=== PATIENT | female | born 1975 | race African-American/Black ===

== ENCOUNTER 2017-08-22 22:03 | Emergency (ER) | payer OTHER ==
[~2017-08-22] VITALS: Ht 177.8 cm; Wt 130.0 kg
[~2017-08-22 22:03] MED LIST: AMLO2.5T2 PO; BENA20TA3 PO; CHOL100046 PO; METF500T4 PO
[2017-08-22] MEDS ORDERED: KETOROLAC 60MG/2ML VIAL IM ONE (23:45)
[2017-08-22 23:55] VITALS: BP 147/85
== END 2017-08-22 23:55 | disposition home or self-care (01) ==
LOC: ER 22:03
DX: J02.9 Acute pharyngitis, unspecified (principal); R50.9 Fever, unspecified; I10 Essential (primary) hypertension; K21.9 Gastro-esophageal reflux disease without esophagitis
CPT/HCPCS: 96372; 99283; J1885

== ENCOUNTER 2019-04-24 12:34 | Emergency (ER) | payer OTHER ==
[~2019-04-24] VITALS: Ht 177.8 cm; Wt 127.0 kg
[~2019-04-24 12:34] MED LIST changes: +BENA20TA10 PO; -BENA20TA3 PO; +METF-414 PO; -METF500T4 PO
[2019-04-24] MEDS ORDERED: IBUPROFEN 600MG TABLET PO STA (16:29)
[2019-04-24 16:36] VITALS: BP 177/96
== END 2019-04-24 17:59 | disposition home or self-care (01) ==
LOC: ER 13:14
DX: M54.5 Low back pain (principal); M25.552 Pain in left hip; W18.39XA Other fall on same level, initial encounter; Y93.89 Activity, other specified; Y92.89 Other specified places as the place of occurrence of the external cause; Y99.8 Other external cause status; E11.9 Type 2 diabetes mellitus without complications; I10 Essential (primary) hypertension; Z79.899 Other long term (current) drug therapy
CPT/HCPCS: 73502; 99283

== ENCOUNTER 2020-05-28 07:59 | Emergency (ER) | payer OTHER ==
[~2020-05-28] VITALS: Ht 177.8 cm; Wt 126.0 kg
[2020-05-28 08:03] VITALS: BP 164/98
== END 2020-05-28 09:08 | disposition home or self-care (01) ==
LOC: ER 08:09
DX: M25.572 Pain in left ankle and joints of left foot (principal); M25.571 Pain in right ankle and joints of right foot; E11.9 Type 2 diabetes mellitus without complications; I10 Essential (primary) hypertension; X50.1XXA Overexertion from prolonged static or awkward postures, initial encounter; Y93.89 Activity, other specified; Y92.89 Other specified places as the place of occurrence of the external cause
CPT/HCPCS: 99282

== ENCOUNTER 2020-07-27 07:17 | Emergency (ER) | payer OTHER ==
[~2020-07-27] VITALS: Ht 177.8 cm; Wt 129.0 kg
[2020-07-27] MEDS ORDERED: ACETAMINOPHEN 325MG TABLET PO STA (08:00)
[2020-07-27] MEDS ORDERED: ONDANSETRON 4MG ODT PO STA (08:00)
[2020-07-27 08:45] LABS: BASOPHILS % 0.7 % (0.0-2.0); EOSINOPHILS % 1.2 % (0.0-5.0); HEMATOCRIT. 35.6 % (36.0-48.0); HEMOGLOBIN. 11.8 g/dL (12.0-16.0); LYMPHOCYTES % 27.3 % (20.0-50.0); MEAN CORPUSCULAR HEMOGLOBIN 29.2 pg (28.0-32.0); MEAN CORPUSCULAR VOLUME 87.7 fL (81.0-99.0); MEAN PLATELET VOLUME 8.5 fl (7.4-10.4); MONOCYTES % 4.9 % (2.0-8.0); NEUTROPHILS % 65.9 % (40.0-76.0); PLATELET 261 x1000/uL (130-400); RED BLOOD CELL COUNT 4.05 mill/uL (4.2-5.4); RED CELL DISTRIBUTION WIDTH 14.2 % (11.6-14.6)
[2020-07-27 08:55] LABS: CHLORIDE 108 mEq/L (98-107); INR 1.1; PROTHROMBIN TIME 11.1 sec (9.6-11.0)
[2020-07-27 09:05] LABS: HCG SCREEN NEGATIVE
[2020-07-27 09:17] LABS: CLARITY URINE CLEAR (CLEAR); COLOR URINE YELLOW (YELLOW); KETONES URINE NEGATIVE (NEGATIVE); LEUKOCYTE ESTERASE URINE TRACE (NEGATIVE); NITRITE URINE NEGATIVE (NEGATIVE); OCCULT BLOOD URINE NEGATIVE (NEGATIVE); PH URINE 6.5 (4.5-8.0); PROTEIN URINE TRACE (NEGATIVE); SPECIFIC GRAVITY URINE 1.021 (1.005-1.030)
[2020-07-27 10:49] VITALS: BP 136/70
== END 2020-07-27 10:53 | disposition home or self-care (01) ==
LOC: ER 07:17
DX: N39.0 Urinary tract infection, site not specified (principal); D25.9 Leiomyoma of uterus, unspecified; E11.9 Type 2 diabetes mellitus without complications; I10 Essential (primary) hypertension; R22.43 Localized swelling, mass and lump, lower limb, bilateral; Z79.84 Long term (current) use of oral hypoglycemic drugs
CPT/HCPCS: 36415; 71045; 76830; 76856; 80053; 81003; 81025; 83690; 84703; 85025; 85610; 87086; 99285; Q0162

== ENCOUNTER 2020-11-28 06:22 | Emergency (ER) | payer OTHER ==
[~2020-11-28] VITALS: Ht 177.8 cm; Wt 127.0 kg
[2020-11-28] MEDS ORDERED: KETOROLAC 30MG/ML VIAL IV STA (07:09)
[2020-11-28 07:47] LABS: CLARITY URINE CLEAR (CLEAR); COLOR URINE YELLOW (YELLOW); KETONES URINE NEGATIVE (NEGATIVE); LEUKOCYTE ESTERASE URINE 1+ (NEGATIVE); NITRITE URINE NEGATIVE (NEGATIVE); OCCULT BLOOD URINE NEGATIVE (NEGATIVE); PROTEIN URINE TRACE (NEGATIVE); SPECIFIC GRAVITY URINE 1.025 (1.005-1.030)
[2020-11-28 08:53] LABS: BASOPHILS % 0.4 % (0.0-2.0); EOSINOPHILS % 1.4 % (0.0-5.0); HEMATOCRIT. 36.8 % (36.0-48.0); HEMOGLOBIN. 12.2 g/dL (12.0-16.0); LYMPHOCYTES % 35.5 % (20.0-50.0); MEAN CORPUSCULAR HEMOGLOBIN 28.7 pg (28.0-32.0); MEAN CORPUSCULAR VOLUME 86.5 fL (81.0-99.0); MEAN PLATELET VOLUME 8.6 fl (7.4-10.4); MONOCYTES % 5.1 % (2.0-8.0); NEUTROPHILS % 57.6 % (40.0-76.0); PLATELET 256 x1000/uL (130-400); RED BLOOD CELL COUNT 4.25 mill/uL (4.2-5.4); RED CELL DISTRIBUTION WIDTH 14.4 % (11.6-14.6)
[2020-11-28 09:01] LABS: CHLORIDE 106 mEq/L (98-107)
[2020-11-28 09:03] LABS: PROTHROMBIN TIME 11.1 sec (9.6-11.0)
[2020-11-28 09:38] VITALS: BP 156/82
[2020-11-28] MEDS ORDERED: NITR100C PO (10:24)
[2020-11-28] MEDS ORDERED: TOPUD PO (10:24)
== END 2020-11-28 11:05 | disposition home or self-care (01) ==
LOC: ER 06:22
DX: N39.0 Urinary tract infection, site not specified (principal); M54.2 Cervicalgia; R60.0 Localized edema; E11.9 Type 2 diabetes mellitus without complications; I10 Essential (primary) hypertension; E66.01 Morbid (severe) obesity due to excess calories; Z68.41 Body mass index [BMI] 40.0-44.9, adult; Z79.84 Long term (current) use of oral hypoglycemic drugs
CPT/HCPCS: 36415; 76830; 76856; 80053; 81003; 83690; 85025; 85610; 93971; 96374; 99285; J1885; Z7610

== ENCOUNTER 2021-12-25 18:26 | Emergency (ER) | payer MEDICAID, OTHER ==
[~2021-12-25] VITALS: Ht 177.8 cm; Wt 80.0 kg
[~2021-12-25 18:26] MED LIST changes: +NITR100C PO; +TOPUD PO
[2021-12-25 18:39] VITALS: BP 117/67
== END 2021-12-25 23:36 | disposition left against medical advice (07) ==
LOC: ER 18:26
DX: R07.89 Other chest pain (principal); R51.9 Headache, unspecified
CPT/HCPCS: 71045; 93005; 99283

== ENCOUNTER 2022-10-17 19:16 | Emergency (ER) | payer MEDICAID, OTHER ==
[~2022-10-17] VITALS: Ht 177.8 cm; Wt 122.0 kg
[~2022-10-17 19:16] MED LIST changes: +BENA-8 PO; -BENA20TA10 PO
[2022-10-17 19:47] VITALS: BP 195/100
== END 2022-10-17 23:30 | disposition left against medical advice (07) ==
LOC: ER 19:16
DX: Z53.21 Procedure and treatment not carried out due to patient leaving prior to being seen by health care provider (principal); E11.9 Type 2 diabetes mellitus without complications; I10 Essential (primary) hypertension
CPT/HCPCS: 99281

== ENCOUNTER 2023-08-06 20:12 | Emergency (ER) | payer MEDICAID, OTHER ==
[~2023-08-06] VITALS: Ht 177.8 cm; Wt 125.2 kg
[2023-08-06 20:32] VITALS: BP 179/97; PULSE 76; RESP 18; TEMP 98; O2SAT 99
[2023-08-06] MEDS ORDERED: CYCL10TA21 MT (23:46)
== END 2023-08-07 00:16 | disposition home or self-care (01) ==
LOC: ER 20:12
DX: S43.102A Unspecified dislocation of left acromioclavicular joint, initial encounter (principal); S40.012A Contusion of left shoulder, initial encounter; S40.011A Contusion of right shoulder, initial encounter; E11.9 Type 2 diabetes mellitus without complications; I10 Essential (primary) hypertension; W10.9XXA Fall (on) (from) unspecified stairs and steps, initial encounter; Y93.89 Activity, other specified; Y92.89 Other specified places as the place of occurrence of the external cause; Y99.8 Other external cause status
CPT/HCPCS: 73030; 81025; 99283

== ENCOUNTER 2023-09-24 01:37 | Emergency (ER) | payer MEDICAID ==
[~2023-09-24] VITALS: Ht 177.8 cm; Wt 123.0 kg
[~2023-09-24 01:37] MED LIST changes: +CYCL10TA21 MT
[2023-09-24 01:43] VITALS: O2SAT 97
[2023-09-24 02:23] LABS: CLARITY URINE CLOUDY (CLEAR); COLOR URINE ORANGE (YELLOW); GLUCOSE URINE NEGATIVE (NEGATIVE); KETONES URINE NEGATIVE (NEGATIVE); LEUKOCYTE ESTERASE URINE 2+ (NEGATIVE); NITRITE URINE POSITIVE (NEGATIVE); OCCULT BLOOD URINE 3+ (NEGATIVE); PH URINE 5.5 (4.5-8.0); PROTEIN URINE 3+ (NEGATIVE); SPECIFIC GRAVITY URINE 1.017 (1.005-1.030)
[2023-09-24] MEDS ORDERED: TOPUD PO (03:49)
[2023-09-24] MEDS ORDERED: CEFP200T13 MT (03:49)
[2023-09-24] MEDS ORDERED: IBUP-2028 MT (03:49)
[2023-09-24 03:54] VITALS: RESP 20
[2023-09-24] MEDS: KETOROLAC 60MG/2ML VIAL IM ONE (03:54)
[2023-09-24] MEDS: CEFTRIAXONE SODIUM 1G VIAL IM ONE (03:54)
[2023-09-24] MEDS: LIDOCAINE HCL 1% 20ML VIAL (Pyxis) INJ INFIL ONE (03:54)
[2023-09-24 04:00] VITALS: BP 179/98; PULSE 102; TEMP 99
[2023-09-24 05:00] LABS: SQUAMOUS EPITHELIAL CELL URINE FEW /lpf (RARE/1+)
[2023-09-24 05:01] LABS: RBC URINE 15-25 /hpf (0-2); WBC URINE TNTC /hpf (0-2)
[2023-09-24 05:02] LABS: BACTERIA URINE 1+
[2023-09-24 10:02] LABS: UCG SCREEN NEGATIVE
== END 2023-09-24 04:02 | disposition home or self-care (01) ==
LOC: ER 01:37
DX: N39.0 Urinary tract infection, site not specified (principal)
CPT/HCPCS: 81003; 81025; 87086; 87186; 96372; 99284; J0696; J1885; J3490; Z7610

== ENCOUNTER 2024-01-10 20:49 | Emergency (ER) | payer MEDICAID, OTHER ==
[~2024-01-10] VITALS: Ht 177.8 cm; Wt 121.0 kg
[~2024-01-10 20:49] MED LIST changes: +CEFP200T13 MT; +IBUP-2028 MT
[2024-01-10 21:02] VITALS: BP 181/104; PULSE 112; RESP 16; TEMP 98.1; O2SAT 100
[2024-01-10 21:59] LABS: CLARITY URINE CLOUDY (CLEAR); COLOR URINE YELLOW (YELLOW); GLUCOSE URINE NEGATIVE (NEGATIVE); KETONES URINE NEGATIVE (NEGATIVE); LEUKOCYTE ESTERASE URINE NEGATIVE (NEGATIVE); NITRITE URINE POSITIVE (NEGATIVE); OCCULT BLOOD URINE 1+ (NEGATIVE); PH URINE 5.5 (4.5-8.0); PROTEIN URINE 3+ (NEGATIVE); SPECIFIC GRAVITY URINE 1.021 (1.005-1.030); UROBILINOGEN URINE 0.2 E.U./dL (0.2-1.0)
[2024-01-10 22:13] LABS: BACTERIA URINE 4+; SQUAMOUS EPITHELIAL CELL URINE 1+ /lpf (RARE/1+); WBC URINE 0-2 /hpf (0-2)
[2024-01-10] MEDS: IBUPROFEN 800MG TABLET PO ONE (23:23)
[2024-01-10] MEDS ORDERED: DOXY100C5 MT (23:34)
[2024-01-10] MEDS ORDERED: CEPH500C2 MT (23:49)
[2024-01-11] MEDS: CEFTRIAXONE SODIUM 500MG VIAL IM ONE (00:05)
[2024-01-14 04:08] LABS: CHLAMYDIA TRACHOMATIS NAA Negative (Negative); NEISSERIA GONORRHOEAE NAA Negative (Negative)
== END 2024-01-11 00:07 | disposition home or self-care (01) ==
LOC: ER 20:49
DX: M25.561 Pain in right knee (principal); M25.511 Pain in right shoulder; M25.551 Pain in right hip; E11.9 Type 2 diabetes mellitus without complications; I10 Essential (primary) hypertension; N39.0 Urinary tract infection, site not specified; W18.30XA Fall on same level, unspecified, initial encounter; Y93.89 Activity, other specified; Y92.89 Other specified places as the place of occurrence of the external cause; Y99.8 Other external cause status
CPT/HCPCS: 99284; 87491; 87591; 81003; 81025; 87086; 73502; 73030; 73562; J0696

== ENCOUNTER 2024-05-29 10:55 | Emergency (ER) | payer MEDICAID ==
[~2024-05-29] VITALS: Ht 177.8 cm; Wt 125.0 kg
[~2024-05-29 10:55] MED LIST changes: +CEPH500C2 MT
[2024-05-29 11:02] VITALS: BP 196/107; PULSE 81; RESP 18; TEMP 98.4; O2SAT 99
[2024-05-29] MEDS: HYDROCODONE/ACETAMINOPHEN 5/325MG TABLET PO STA (13:04)
[2024-05-29] MEDS ORDERED: T3 PO (15:12)
[2024-05-29] MEDS ORDERED: NAPR-681 PO (15:12)
== END 2024-05-29 15:47 | disposition home or self-care (01) ==
LOC: ER 10:55
DX: S50.11XA Contusion of right forearm, initial encounter (principal); S39.012A Strain of muscle, fascia and tendon of lower back, initial encounter; M25.561 Pain in right knee; E11.9 Type 2 diabetes mellitus without complications; I10 Essential (primary) hypertension; Z79.899 Other long term (current) drug therapy; V49.50XA Passenger injured in collision with unspecified motor vehicles in traffic accident, initial encounter; Y93.89 Activity, other specified; Y92.89 Other specified places as the place of occurrence of the external cause; Y99.8 Other external cause status
CPT/HCPCS: 72100; 73562; 81025; 99284

== ENCOUNTER 2025-07-15 07:16 | Emergency (ER) | payer MEDICAID, OTHER ==
[~2025-07-15] VITALS: Ht 172.7 cm; Wt 111.0 kg
[~2025-07-15 07:16] MED LIST changes: +NAPR-681 PO; +T3 PO
[2025-07-15 07:33] VITALS: O2SAT 99
[2025-07-15] MEDS ORDERED: NAPR-420 PO (09:12)
[2025-07-15 09:49] VITALS: BP 162/86; PULSE 72; RESP 18; TEMP 36.7; O2SAT 99
== END 2025-07-15 09:52 | disposition home or self-care (01) ==
LOC: ER 07:16
DX: M17.0 Bilateral primary osteoarthritis of knee (principal); I10 Essential (primary) hypertension; E11.9 Type 2 diabetes mellitus without complications; Z79.899 Other long term (current) drug therapy; Z98.890 Other specified postprocedural states
CPT/HCPCS: 73560; 99283